=== PATIENT | female | born 1990 | race Caucasian/White ===

== ENCOUNTER 2016-04-18 12:57 | Emergency (ER) | payer OTHER ==
[~2016-04-18] VITALS: Ht 162.6 cm; Wt 83.9 kg
[2016-04-18 13:31] VITALS: BP 127/80
[2016-04-18] MEDS ORDERED: IBUPROFEN 400 MG TABLET. PO ONE (13:45)
--- NOTE | 2016-04-18 14:43 | RAD ---
Chest, 2 views, 04/18/2016: History: Chest pain The heart size and pulmonary vascularity are normal. No pulmonary infiltrates are seen. There is no evidence of pleural fluid. There is a mild thoracic scoliosis. IMPRESSION: No acute cardiopulmonary abnormality is detected.
--- NOTE | 2016-04-18 14:45 | EKG ---
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
[2016-04-18 14:50] LABS: CALCIUM 8.7 mg/dL (8.5-10.1); CREATININE 0.7 mg/dL (0.6-1.0); GFR 100.4; POTASSIUM 4.4 mmol/L (3.5-5.1)
--- NOTE | 2016-04-18 15:00 | PHYS DOC ---
Past Medical History Past Medical History: Angina, Asthma, Heart Disease, HIV Additional Past Medical Histor: conjunctivitis Past Surgical History: Appendectomy, Tonsillectomy Alcohol Use: None Drug Use: None Adult General Chief Complaint Chief Complaint: CHEST WALL PAIN HPI HPI Patient is a 26 year old female who presents [facility] evaluation of intermittent left sided chest pains that are sudden in onset, frequent, and shooting across her chest. She states they last approx 3 minutes. She does have some nausea and vomiting today with intermittent nonbloody nonbilious emesis. States sometimes she has left arm numbness and tingling sensation that is not present currently. They have been present for a few days now. She denies fever or chills, cough, diaphoresis, exertional symptoms, orthopnea, hemoptysis, leg pain or swelling, palpitations, abdominal pain, dysuria, hematuria, back pain. Review of Systems Review of Systems Constitutional: Denies fever or chills [] Eyes: Denies change in visual acuity, redness, or eye pain [] HENT: Denies nasal congestion or sore throat [] Respiratory: Denies cough or shortness of breath [] Cardiovascular: No additional information not addressed in HPI [] GI: Denies abdominal pain, bloody stools or diarrhea [] : Denies dysuria or hematuria [] Musculoskeletal: Denies back pain or joint pain [] Integument: Denies rash or skin lesions [] Neurologic: Denies headache, focal weakness or sensory changes [] Endocrine: Denies polyuria or polydipsia [] Current Medications Current Medications Current Medications Medications (Trade) Dose Ordered Sig/[facility] Start Time Stop Time Status Last Admin Dose Admin Ibuprofen (Motrin) 400 mg 1X ONCE 04/18/16 13:45 04/18/16 13:46 DC 04/18/16 14:07 400 MG Allergies Allergies Allergies Coded Allergies Type Severity Reaction Last Updated Verified Penicillins Allergy Intermediate 04/18/16 Yes amoxicillin Allergy Intermediate 04/18/16 Yes meperidine Allergy Intermediate 04/18/16 Yes morphine Allergy Intermediate 04/18/16 Yes peanut Allergy Intermediate 04/18/16 Yes tramadol Allergy Intermediate 04/18/16 Yes Physical Exam Physical Exam Constitutional: Well developed, well nourished, no acute distress, non-toxic appearance. [] HENT: Normocephalic, atraumatic, bilateral external ears normal, oropharynx moist, nose normal. [] Eyes: PERRLA, EOMI. [] Neck: Normal range of motion, supple. [] Cardiovascular:Heart rate regular rhythm [] Lungs & Thorax: Bilateral breath sounds clear to auscultation. No chest wall tenderness. No visual or palpable abnormality [] Abdomen: Bowel sounds normal, soft, no tenderness. [] Skin: Warm, dry, no erythema, no rash. [] Back: No tenderness, no CVA tenderness. [] Extremities: No tenderness, ROM intact, no edema. [] Neurologic: Alert and oriented X 3, normal motor function, normal sensory function, no focal deficits noted, cranial nerves II through XII intact. [] Psychologic: Affect normal, judgement normal, mood normal. [] Current Patient Data Vital Signs Vital Signs Date Time Temp Pulse Resp B/P Pulse Ox O2 Delivery O2 Flow Rate FiO2 04/18/16 13:31 98.6 85 27 127/80 98 Room Air 98.6 Lab Values Laboratory Tests Test 04/18/16 13:55 04/18/16 14:00 POC Urine HCG, Qualitative Hcg negative (Negative) Sodium Level 143mmol/L (136-145) Potassium Level 4.4mmol/L (3.5-5.1) Chloride Level 110mmol/L (98-107) H Carbon Dioxide Level 24mmol/L (21-32) Anion Gap 9 (6-14) Blood Urea Nitrogen 9mg/dL (7-20) Creatinine 0.7mg/dL (0.6-1.0) Estimated GFR (Cockcroft-Gault) 100.4 Glucose Level 80mg/dL (70-99) Calcium Level 8.7mg/dL (8.5-10.1) Laboratory Tests 04/18/16 14:00 EKG EKG EKG as interpreted by me as normal sinus rhythm, rate 69, no ST-T changes, normal intervals, no ectopy Radiology/Procedures Radiology/Procedures Chest xray as interpreted by me with no acute cardiopulmonary disease process Course & Med Decision Making Course & Med Decision Making Pertinent Labs and Imaging studies reviewed. (See chart for details) Workup is unremarkable. Recommend follow-up with primary care for further workup. Return precautions given. She understands and agrees with plan. Thuan Disclaimer Thuan Disclaimer This electronic medical record was generated, in whole or in part, using a voice recognition dictation system. Departure Departure Impression: Primary Impression: Chest pain Disposition: HOME, SELF-CARE (usp) Condition: STABLE Referrals: NO PCP (PCP) Patient Instructions: Chest Wall Pain, [id number] Additional Instructions: Take Tylenol or ibuprofen as needed for pain. Follow-up with your primary care doctor. Return for any concerns. Problem Qualifiers Primary Impression: Chest pain Chest pain type: other chest pain Qualified Code: R07.89 - Other chest pain Sukhjinder ZHU MD Apr 18, 2016 15:00
== END 2016-04-18 15:17 | disposition home or self-care (01) ==
LOC: ER 12:57 → EEVIPCON 12:57 → ER 15:17
DX: R07.89 Other chest pain (principal); R11.2 Nausea with vomiting, unspecified; R20.0 Anesthesia of skin; J45.909 Unspecified asthma, uncomplicated; Z21 Asymptomatic human immunodeficiency virus [HIV] infection status; Z88.0 Allergy status to penicillin; Z88.1 Allergy status to other antibiotic agents; Z88.6 Allergy status to analgesic agent; Z88.5 Allergy status to narcotic agent; Z91.010 Allergy to peanuts; Z90.49 Acquired absence of other specified parts of digestive tract; Z86.79 Personal history of other diseases of the circulatory system
CPT/HCPCS: 36415; 71020; 80048; 81025; 93005; 99285-25

== ENCOUNTER 2017-01-09 07:14 | Day surgery (SDC) | payer OTHER ==
[~2017-01-09] VITALS: Ht 162.6 cm; Wt 106.6 kg
[~2017-01-09 07:14] MED LIST: CLINDAMYCIN 900MG PREMIX 50 ML IV PRN; IV RINGERS,LACTATED 1000ML 1,000 ML IV SCH; LIDOCAINE 1% PF 2 ML VIAL. ID PRN; MORPHINE SULFATE 4 MG/ML DISP.SYRIN. IV PRN; ONDANSETRON PF 4 MG/2 ML VIAL. IV PRN; fentaNYL PF VIAL 100 MCG/2 ML VIAL IV PRN
--- NOTE | 2017-01-09 07:36 | DISCH ---
DISCHARGE INSTRUCTIONS Condition on Discharge Condition on Discharge: Stable Activity After Discharge Activity Instructions for Disc: Other, see below Bathing Instructions: Shower-keep dressing dry Weight Bearing Status after Di: As tolerated Diet after Discharge Diet after Discharge: Regular Wound Incision Care Wound/Incision Care: Ice to area for comfort, Keep wound/cast CDI, Change dressing Contacting the [facility] after DC Call your doctor for: Concerns you may have Follow-Up Follow up with: Fam in 2wks Treatment/Equipment after DC Adaptive Equipment Issued: None ASHANTI HILL II, MD Jan 09, 2017 07:36
--- NOTE | 2017-01-09 07:38 | PDOC ---
BRIEF OPERATIVE NOTE Date: Jan 09, 2017 Pre-Op Diagnosis R ACL tear, lateral meniscal tear Post-Op Diagnosis same Procedure Performed R knee arthroscopic ACL recon with auto hamstring Surgeon Fam Requisition Approver Danielle Anesthesiologist [place] Anesthesia Type: General, Local Blood Loss 25mL IV Fluid see Anes Urine Output NA Specimens Obtained NA Findings ACL tear, stable, small LM tear Complications none Operative Note dictated ASHANTI HILL II, MD Jan 09, 2017 07:38
[2017-01-09] MEDS ORDERED: SULI150T PO (07:50)
[2017-01-09] MEDS ORDERED: PROM25TA10 PO (07:50)
[2017-01-09] MEDS ORDERED: ABAC1TAB7 PO (07:50)
[2017-01-09] MEDS ORDERED: CICL6.1H3 IH (07:50)
[2017-01-09] MEDS ORDERED: POLY119P4 PO (07:50)
[2017-01-09] MEDS ORDERED: ALBU2.5V14 NEB (07:50)
[2017-01-09] MEDS ORDERED: CYCL10TA2 PO (07:50)
[2017-01-09] MEDS ORDERED: LAMI1TAB PO (07:50)
[2017-01-09] MEDS ORDERED: CLOT56.7 TP (07:50)
[2017-01-09] MEDS ORDERED: PANT40TA5 PO (07:50)
[2017-01-09] MEDS ORDERED: PYRI100T PO (07:50)
[2017-01-09] MEDS ORDERED: DOLU50TA PO (07:51)
[2017-01-09] MEDS: IV RINGERS,LACTATED 1000ML 1,000 ML IV SCH (07:55)
[2017-01-09] MEDS ORDERED: fentaNYL PF VIAL 100 MCG/2 ML VIAL ONE ×2 (08:32→10:12)
[2017-01-09] MEDS ORDERED: ROCURONIUM 50 MG/5 ML VIAL. ONE (08:32)
[2017-01-09] MEDS ORDERED: FAMOTIDINE 20 MG/2 ML VIAL ONE (08:32)
[2017-01-09] MEDS ORDERED: PROPOFOL 20 ML IV ONE (08:32)
[2017-01-09] MEDS ORDERED: DEXAMETHASONE SOD PHOS 20 MG/5 ML VIAL. ONE (08:32)
[2017-01-09] MEDS ORDERED: LIDOCAINE 2% PF Vial for OR 5 ML VIAL. ONE (08:32)
[2017-01-09] MEDS ORDERED: ONDANSETRON PF 4 MG/2 ML VIAL. ONE (08:32)
[2017-01-09] MEDS ORDERED: MIDAZOLAM HCL/PF 2 MG/2 ML VIAL. ONE (08:32)
[2017-01-09] MEDS ORDERED: EPINEPHrine VIAL 30 MG/30 ML VIAL ONE (09:10)
[2017-01-09] MEDS ORDERED: SCOPOLAMINE 1.5MG PATCH. TD ONE (09:25)
[2017-01-09] MEDS ORDERED: GLYCOPYRROLATE 1 MG/5 ML VIAL. ONE (10:00)
[2017-01-09] MEDS ORDERED: NEOSTIGMINE 10 MG/10 ML VIAL. ONE (10:00)
[2017-01-09] MEDS ORDERED: BUPIVACAINE MPF 0.5% 30 ML VIAL. ONE (11:12)
[2017-01-09] MEDS ORDERED: LIDOCAINE 1% PF 30 ML VIAL. ONE (11:12)
[2017-01-09] MEDS ORDERED: SEVOFLURANE > 120 MINUTES. IH ONE (11:13)
[2017-01-09 11:18] LABS: NEG OBC UR NEG; POS OBC UR POS
[2017-01-09] MEDS ORDERED: ESMOLOL 100 MG/10 ML VIAL. IV ONE (11:20)
[2017-01-09] MEDS: PROCHLORPERAZINE 10 MG/2 ML VIAL. IV PRN ×2 (11:40→11:55)
[2017-01-09] MEDS: fentaNYL PF VIAL 100 MCG/2 ML VIAL IV PRN ×2 (11:40→11:45)
[2017-01-09] MEDS ORDERED: oxyCODONE/APAP 5/325 1 TAB TABLET PO PRN (12:00)
[2017-01-09] MEDS: HYDROmorphone 2 MG/ML VIAL IV PRN ×4 (12:02→13:19)
[2017-01-09] MEDS ORDERED: OXYC-323 PO (12:06)
[2017-01-09] MEDS ORDERED: DOCU-109 PO (12:07)
[2017-01-09] MEDS ORDERED: ONDA4TAB10 SL (12:07)
[2017-01-09 13:20] VITALS: BP 138/92
--- NOTE | 2017-01-09 14:45 | OP ---
DATE OF SURGERY: 01/09/2017 SURGEON: Ernesto Hill MD PIPELINE DISPATCH OPERATOR: Noemí Santos. ANESTHESIA: General. PREOPERATIVE DIAGNOSES: 1. Complete right knee anterior cruciate ligament tear. 2. Lateral meniscus tear. POSTOPERATIVE DIAGNOSES: 1. Complete right knee anterior cruciate ligament tear. 2. Lateral meniscus tear. PROCEDURE PERFORMED: Arthroscopic assisted right knee autograft hamstring with allograft augmentation and ACL reconstruction. COMPLICATIONS: None. ESTIMATED BLOOD LOSS: 10 mL. FINDINGS: 1. She had some small area of grade 2-3 changes at her trochlea. Patellar cartilage was intact. Medial and lateral compartment cartilage was intact. 2. Intact and stable medial meniscus. 3. Complete ACL tear. 4. Examination of her lateral meniscus revealed a tear at about the red-white junction. It was about 5 mm in length and partial thickness. laterally adjacent to this, it did look like she had a healed tear that was longer as well. COMPONENTS INSERTED: Aburto and Nephew 15 mm Endobutton with 8 x 25 PEEK screw. REASON FOR PROCEDURE: The patient is a pleasant female who suffered an injury while playing athletics over a year ago. I had seen and evaluated her as an outpatient consultation for a complaint of knee instability with athletics. She desired to get back to more strenuous activity and some athletics and therefore, we had discussion of the risks, benefits, alternatives of the above procedure and she elected to proceed. DESCRIPTION OF PROCEDURE: The patient was greeted in the preoperative area by myself, where the correct extremity was marked and verified. She was taken to the operative suite and antibiotics were started en route. Once in the OR, she was transferred gently supine to the OR table and secured to the bed with all pressure points padded. She underwent successful induction of general anesthetic and I then conducted my examination under anesthesia, which revealed a positive Sylvester without an endpoint and a positive pivot shift. Her knee was stable to varus and valgus in extension and 30 degrees of flexion. After this, we secured a tourniquet and placed to her right upper thigh and a padded rest for her foot at the foot of the bed and a padded bump laterally at her hip. We then proceeded to prep and drape right lower extremity in our usual sterile fashion and conducted our standard preoperative timeout. After accomplishing this, I palpated and marked the surface anatomy and then made my tibial incision and dissected subcutaneous tissue with electrocautery and Franklin until I identified the hamstring tendons via palpation. I then incised proximal to these and took down the sartorial fascia. I then used my Michelle to release the hamstrings off of the tibial attachment and then clamped these with a 90 degree right angle clamp. After this, I used the Michelle to release the overlying sartorial fascia and divided the hamstring tendons. I then placed a #2 Ultrabraid in a running whipstitch fashion through the free ends and used the tendon stripper to deliver the tendon ends. One of her hamstrings was quite diminutive and after sizing these grafts, it was too small to be of much use at all. Therefore, I opted to supplement this with a peroneus allograft, which was thawed and then split in a string cheese type fashion. We then placed whipstitch ends in this graft and sized it for an 8.5 at the femoral and tibial. I then placed a graft through the Endobutton loop and put the graft under tension. After this, I directed my attention to performing my arthroscopic portion of the procedure and began by making my standard anterolateral portal and incised the skin with a scalpel introducing the blunt arthroscopic trocar into the suprapatellar pouch. I then started my diagnostic arthroscopy and upon entering the medial compartment, I used a spinal to localize the anteromedial portal and then I incised skin in accordance with this. I then inserted the probe, inspected the medial meniscus and then continued on with my diagnostic portion of the exam. Upon entering the lateral compartment in a [id number] position, I used a probe to inspect the extent of the lateral meniscus tear, it was quite small and therefore, I used a spinal needle to trephinate it. After this, I directed my attention using the shaver and upbiter to take down the ACL, taking care to leave the meniscus intact and intermeniscal ligament intact. After this, I used my tip guide and referenced the cabazon footprint of the PCL and the posterior horn of the lateral meniscus for my tibial tunnel and then advanced my Beath pin. I then checked its position and orientation. I was happy with this and then reamed over top. I then placed the plug in the tibia and I directed my attention towards the femur. I used a microfracture awl to john my anticipated spot and then inspected this from a anteromedial portal and felt this was too posterior. Therefore, I used the #6 over the top guide and made sure I was anterior to my first hole and I was happy with this position and then the knee also was in hyperflexion. We advanced the Beath pin part of the way and then I removed the Beath pin and over top guide, brought the knee back up and I inspected this new position from an anteromedial portal and was happy with it. We therefore reintroduced all the arthroscopic equipment and hyperflexed the knee and sent the Beath pin out through both cortices on the lateral thigh. I then reamed over this with my Endobutton reamer. I removed the Beath pin, cleared out the bony debris and measured the tunnel, it was a 38. I then replaced the Beath pin and reamed over top of this to approximately 33 mm. I then cleared all bony debris and inspected my tunnel from the anteromedial portal and noted no violation of the lateral cortex and was happy with this position. I therefore through the camera reintroduced it into the anterolateral portal. I then used a Beath pin to shuttle a #2 Ultrabraid through the femoral tunnel and then retrieved it through the tibial tunnel via loop grasper. The ACL graft was then shuttled into position, confirmed by appropriate toggle at the lateral cortex, which disappeared with backward traction on the graft. I then cycled the knee repeatedly. After repeatedly cycling the knee, then held the knee, flexed it to about 20 degrees and then spread the graft wounds apart. I placed a nitinol wire in between all 4 graft wounds and secured the graft with the screw. She had a negative Sylvester with a solid endpoint at this point. I then removed the nitinol wire and reinserted the camera and checked my graft position and was happy with it in flexion and extension. I then inserted the camera and shaver into the suprapatellar pouch and performed repeat aspiration maneuvers while my grants assistant vigorously palpated behind the knee. She tolerated surgery well. No complications. At the conclusion of surgery, I injected 20 mL of a local anesthetic mixture into the hamstring harvest site. Sartorial fascia was reapproximated with #1 Vicryl. Inverted interrupted #1 Vicryl followed by inverted interrupted 2-0 in a multilayered fashion was used for skin over the tibial incision followed by running 4-0 subcuticular Monocryl. A 3-0 nylon in simple interrupted fashion was used for portals. The leg was cleansed and dried and a sterile dressing was applied. No complications. Prior to completion of wound closure, all counts were correct x 2. At the conclusion of surgery, she was awakened from anesthesia, transferred gently supine to the recovery room cart and taken to PACU in stable and extubated condition. [facility] She will follow up with me in 2 weeks, sooner should problems arise. ERNESTO HILL MD DR: TRUDI/jennifer JOB#: [id number] / [id number] KIMBERLY
== END 2017-01-09 13:59 | disposition home or self-care (01) ==
LOC: SURG 07:14 → EEVIPCON 09:25 → SURG 13:59
PROVIDERS: ATTEND Orthopaedic Surgery Sports Medicine
PROC: 0MRN47Z Replacement of Right Knee Bursa and Ligament with Autologous Tissue Substitute, Percutaneous Endoscopic Approach (ICD-10-PCS; principal; 2017-01-09 09:25)
DX: S83.511A Sprain of anterior cruciate ligament of right knee, initial encounter (principal); S83.281A Other tear of lateral meniscus, current injury, right knee, initial encounter; X58.XXXA Exposure to other specified factors, initial encounter; Y93.89 Activity, other specified; Y92.89 Other specified places as the place of occurrence of the external cause; Y99.8 Other external cause status; Z87.39 Personal history of other diseases of the musculoskeletal system and connective tissue; Z98.890 Other specified postprocedural states; Z88.6 Allergy status to analgesic agent; Z88.1 Allergy status to other antibiotic agents; Z88.0 Allergy status to penicillin; Z91.018 Allergy to other foods
CPT/HCPCS: 29888; 81025; C1713; C1763; C1782; J0171; J0780; J1100; J1170; J2250; J2405; J2704; J2710; J3010; J3490; J7120; S0028; J2001